=== PATIENT | male | born 1975 | race Two or more races ===

== ENCOUNTER → 2016-12-19 | Outpatient (CLI) | payer SELFPAY ==
[2016-12-19 10:46] LABS: CHLORIDE,CL 104 mmol/L (98-110); SODIUM,NA 139 mmol/L (136-146)
== END ==
LOC: MW.CHIM 10:12
PROVIDERS: ATTEND Internal Medicine
DX: I10 Essential (primary) hypertension (principal); R53.83 Other fatigue
CPT/HCPCS: 36415; 80048; 83036

== ENCOUNTER 2019-07-02 17:11 | Emergency (ER) | payer SELFPAY ==
--- NOTE | 2019-07-02 17:17 | EDM.PDOC ---
ED HPI GENERAL MEDICAL PROBLEM - General Chief Complaint: General Stated Complaint: MED REFILL Time Seen by Provider: 07/02/19 17:11 Source of Information: Reports: Patient History Limitations: Reports: No Limitations - History of Present Illness INITIAL COMMENTS - FREE TEXT/NARRATIVE: HISTORY AND PHYSICAL: History of present illness: Review of systems: As per history of present illness and below otherwise all systems reviewed and negative. Past medical history: As per history of present illness and as reviewed below otherwise noncontributory. Surgical history: As per history of present illness and as reviewed below otherwise noncontributory. Social history: See social history for further information Family history: As per history of present illness and as reviewed below otherwise noncontributory. Physical exam: General: HEENT: Atraumatic, normocephalic, pupils equal and reactive bilaterally, negative for conjunctival pallor or scleral icterus, mucous membranes moist, TMs normal bilaterally, throat clear, neck supple, nontender, trachea midline. No drooling or trismus noted. No meningeal signs. No hot potato voice noted. Lungs: Clear to auscultation, breath sounds equal bilaterally, chest nontender. Heart: S1S2, regular rate and rhythm without overt murmur Abdomen: Soft, nondistended, nontender. Skin: Intact, warm, dry. No lesions or rashes noted. Extremities: Atraumatic, moves all extremities per self without difficulty or deficits, negative for cords or calf pain. Neurovascular unremarkable. Neuro: Awake, alert, oriented. Cranial nerves II through XII unremarkable. Cerebellum unremarkable. Motor and sensory unremarkable throughout. Exam nonfocal. Notes: Supportive care measures were reviewed and discussed. Voices understanding and is agreeable to plan of care. Denies any further questions or concerns at this time. Diagnostics: Therapeutics: Prescription: Impression: Plan: Definitive disposition and diagnosis as appropriate pending reevaluation and review of above. - Related Data Allergies Allergy/AdvReac Type Severity Reaction Status Date / Time Unable to Assess Allergy Unverified 01/01/15 07:58 Departure - Discharge Information Referrals: PCP,Unknown [Primary Care Provider] -
== END 2019-07-02 17:23 ==
LOC: MW.ED 17:11
DX: Z53.21 Procedure and treatment not carried out due to patient leaving prior to being seen by health care provider (principal)

== ENCOUNTER 2020-06-25 08:02 | Day surgery (SDC) | payer OTHER ==
[~2020-06-25 08:02] MED LIST: Sodium Chloride 0.9% 1,000 ML IV SCH; Sodium Chloride 0.9% 10 ML SDV IV PRN; Sodium Chloride 0.9% 10 ML Syringe FLUSH PRN; Sodium Chloride 0.9% 2.5 ML Syringe FLUSH PRN
[2020-06-25] MEDS ORDERED: Propofol 200 MG/20 ML SDV ONE (08:49)
[2020-06-25] MEDS ORDERED: fentaNYL 100 MCG/2 ML SDV ONE (08:49)
[2020-06-25] MEDS ORDERED: Midazolam 1 MG/ML 2 ML SDV ONE (08:50)
[2020-06-25] MEDS ORDERED: Lactated Ringers 1,000 ML IV SCH (09:00)
--- NOTE | 2020-06-25 09:25 | PCM.PREANE ---
Preanesthetic Assessment - Anesthesia/Transfusion/Family Hx Anesthesia History: Prior Anesthesia Without Reaction Family History of Anesthesia Reaction: No Transfusion History: No Prior Transfusion(s) Intubation History: Unknown - Review of Systems General: No Symptoms Pulmonary: No Symptoms Cardiovascular: No Symptoms Gastrointestinal: Hematochezia, Other (family h/o colon cancer) Neurological: No Symptoms Other: Reports: None - Physical Assessment Vital Signs: Last Vital Signs Temp 36.2 C 06/25/20 08:57 Pulse 84 06/25/20 08:57 Resp 16 06/25/20 08:57 BP 119/80 06/25/20 08:57 Pulse Ox 100 06/25/20 08:57 Height: 5 ft 5 in Weight: 68.946 kg ASA Class: 2 Mental Status: Alert & Oriented x3 Airway Class: Mallampati = 1 Dentition: Reports: Normal Dentition Thyro-Mental Finger Breadths: 3 Mouth Opening Finger Breadths: 3 ROM/Head Extension: Full Lungs: Clear to Auscultation, Normal Respiratory Effort Cardiovascular: Regular Rate, Regular Rhythm - Allergies Allergies/Adverse Reactions: Allergies Allergy/AdvReac Type Severity Reaction Status Date / Time egg Allergy Itching Verified 06/25/20 09:05 - Blood Blood Available: No - Anesthesia Plan Pre-Op Medication Ordered: None - Acknowledgements Anesthesia Type Planned: MAC Pt an Appropriate Candidate for the Planned Anesthesia: Yes Alternatives and Risks of Anesthesia Discussed w Pt/Guardian: Yes Pt/Guardian Understands and Agrees with Anesthesia Plan: Yes PreAnesthesia Questionnaire Cardiovascular History: Reports: High Cholesterol, Hypertension Gastrointestinal History: Reports: GERD, Other (See Below) Other Gastrointestinal History: hx of rectal bleeding Endocrine/Metabolic History: Reports: Diabetes, Type II - Past Surgical History Head Surgeries/Procedures: Reports: None GI Surgical History: Reports: None Other Musculoskeletal Surgeries/Procedures:: closure of laceration left wrist - SUBSTANCE USE Smoking Status *Q: Never Smoker Recreational Drug Use History: No - HOME MEDS Home Medications: Home Meds Ergocalciferol (Vitamin D2) [Drisdol] 1.25 mg PO WEEKLY 06/23/20 [History] atorvaSTATin Calcium [Atorvastatin Calcium] 40 mg PO BEDTIME 06/23/20 [History] lisinopriL [Lisinopril] 20 mg PO BID 06/23/20 [History] metFORMIN HCl [Metformin ER Osmotic] 500 mg PO BID 06/23/20 [History] - CURRENT (IN HOUSE) MEDS Current Meds: Current Medications Sodium Chloride (Normal Saline) 1,000 mls @ 125 mls/hr IV ASDIRECTED TONO Lactated Ringer's (Ringers, Lactated) 1,000 mls @ 125 mls/hr IV ASDIRECTED TONO Last Admin: 06/25/20 09:10 Dose: 125 mls/hr Documented by: Sodium Chloride (Saline Flush) 10 ml FLUSH ASDIRECTED PRN PRN Reason: Keep Vein Open Sodium Chloride (Saline Flush) 2.5 ml FLUSH ASDIRECTED PRN PRN Reason: Keep Vein Open Sodium Chloride (Normal Saline) 10 ml IV ASDIRECTED PRN PRN Reason: IV Use Discontinued Medications Fentanyl (Sublimaze) Confirm Administered Dose 100 mcg .ROUTE .STK-MED ONE Stop: 06/25/20 08:50 Lidocaine HCl (Xylocaine-Mpf 1%) Confirm Administered Dose 5 ml .ROUTE .STK-MED ONE Stop: 06/25/20 08:51 Midazolam HCl (Versed 1 Mg/Ml) Confirm Administered Dose 2 mg .ROUTE .STK-MED ONE Stop: 06/25/20 08:51 Propofol (Diprivan 20 Ml) Confirm Administered Dose 600 mg .ROUTE .STK-MED ONE Stop: 06/25/20 08:50
--- NOTE | 2020-06-25 10:48 | PCM.OPNOTE ---
- General Post-Op/Procedure Note Date of Surgery/Procedure: 06/25/20 Operative Procedure(s): EGD with Biopsies and Colonoscopy Findings: Duodenitis, Gastritis, healing stomach ulcer, normal colon. Dictation #[id number] Pre Op Diagnosis: Blood in stool, Left abdominal pain Post-Op Diagnosis: Duodenitis, Gastritis, Stomach Ulcer, Normal Colon Anesthesia Technique: [facility] [place] Primary Surgeon: Eduardo Cunningham Pathology: EGD biopsies Condition: Good
--- NOTE | 2020-06-25 11:35 | PCM.POSTAN ---
POST ANESTHESIA ASSESSMENT - MENTAL STATUS Mental Status: Alert, Oriented - VITAL SIGNS Vital Signs: Last Vital Signs Temp 36.2 C 06/25/20 10:43 Pulse 90 06/25/20 11:29 Resp 14 06/25/20 11:29 BP 110/74 06/25/20 11:29 Pulse Ox 98 06/25/20 11:29 - RESPIRATORY Respiratory Status: Respiratory Rate WNL, Airway Patent, O2 Saturation Stable - CARDIOVASCULAR CV Status: Pulse Rate WNL, Blood Pressure Stable - GASTROINTESTINAL GI Status: No Symptoms - PAIN Pain Score: 0 - POST OP HYDRATION Hydration Status: Adequate & Stable - OBSERVATIONS Free Text/Narrative:: No anesthesia problems
--- NOTE | 2020-06-25 12:06 | PCM48HPAN ---
Post Anesthesia Note - EVALUATION WITHIN 48HRS OF ANESTHETIC Vital Signs in Normal Range: Yes Patient Participated in Evaluation: Yes Respiratory Function Stable: Yes Airway Patent: Yes Cardiovascular Function Stable: Yes Hydration Status Stable: Yes Pain Control Satisfactory: Yes Nausea and Vomiting Control Satisfactory: Yes Mental Status Recovered: Yes Vital Signs: Last Vital Signs Temp 36.2 C 06/25/20 10:43 Pulse 90 06/25/20 11:29 Resp 14 06/25/20 11:29 BP 110/74 06/25/20 11:29 Pulse Ox 98 06/25/20 11:29 - COMMENTS/OBSERVATIONS Free Text/Narrative:: No anesthesia problems
--- NOTE | 2020-06-25 16:35 | OR ---
SURGEON: DAYDAY FROST MD DATE OF PROCEDURE: 06/25/2020 PREOPERATIVE DIAGNOSES: 1. Blood in stool. 2. Left upper abdominal pain. POSTOPERATIVE DIAGNOSES: 1. Normal colonoscopy. 2. Duodenitis, gastritis, healing stomach ulcer. PROCEDURES PERFORMED: 1. Esophagogastroduodenoscopy with biopsies. 2. Colonoscopy. ANESTHESIA: MAC with Anesthesia. PRIMARY SURGEON: Dayday Frost MD SPECIMENS: EGD biopsies. EXTENT OF EGD: Up to the first part of the duodenum. EXTENT OF COLONOSCOPY: To the cecum. WITHDRAWAL TIME OF COLONOSCOPY: 10 minutes. BOWEL PREP: Very good. REASON FOR PROCEDURE: The patient is a pleasant 44-year-old gentleman who says for past couple of years he has intermittent blood in stool. Two months ago, he had a quite a bit of blood that was dripping out into the toilet. He has had no episodes since then. The patient has never had a colonoscopy before. The patient also states he gets some left abdominal pain. This happens especially after eating spicy food. Milk and dairy products seem to make it better. He says he has to eat a lot of Tums. In the clinic, I did tell him to start some omeprazole daily. The patient says this he has only been on for a week, but it seems to have greatly helped with his left abdominal pain. PROCEDURE IN DETAIL: Physical examination was performed. I went over the risks and benefits associated with the procedure with the patient in detail. The patient verbalized understanding of the same. The patient was then connected to appropriate monitoring devices and IV was started. EKG, pulse oximetry, blood pressure, capnography, and monitoring throughout the procedure. Continuous oxygen and sedation were provided by anesthesiologist. The patient was placed in left lateral decubitus position. Sedation was began. After adequate sedation was achieved, upper endoscope was advanced under direct visualization without any difficulty. The underlying mucosae of the esophagus, GE junction, stomach, pylorus, and first part of duodenum were inspected. On entering the stomach, the patient did have what looked to be a healing ulcer in the body of the stomach, more in the greater curvature of the stomach. The patient also had some gastritis throughout his stomach, but mainly in the body and more antrum. Scope was then advanced into the duodenum. At the very beginning of duodenum just past the pylorus, the patient did have what looked to be some inflammation, but no ulcers. Scope was then brought down further into the duodenum, appeared to have more normal mucosa. Scope was brought back up, biopsies were taken of the proximal duodenum where the inflammation was and sent for pathology. Biopsies were also taken of the pylorus to check for H. pylori. Scope was retroflexed in the stomach. Scope was brought back to this what appeared to be a healing ulcer. I did do several biopsies right around where the ulcer was and then one at the actual ulcer, it appeared to be healing. There was good hemostasis. Scope was brought up to GE junction. GE junction was about 37 cm from the incisor. GE junction had a good Z-line with a good transition from squamous to columnar tissue. Scope was brought back in the stomach. Again, good hemostasis of the biopsy sites. Stomach was then desufflated. Scope was brought up to the esophagus. The esophagus appeared normal. Scope was removed and this part of the procedure was terminated. Gloves and scopes were changed. Now, a digital rectal exam was performed. No rectal masses or polyps were felt. Now, a well-lubricated Olympus colonoscope was entered in rectum and advanced under direct visualization to the cecum. Cecum was identified by both visual and anatomic landmarks. A photograph was taken of the cecal cap and appendiceal orifice. Pictures were taken of the ileocecal valve. The scope was then slowly withdrawn color, texture, anatomy, and integrity of the mucosa from the cecal to the anal canal. The patient did have some light liquid stool which was suctioned and irrigated out with excellent look at the mucosa. No polyps or diverticulosis was seen. Scope was retroflexed in the rectum. Scope was then completely removed and the procedure was terminated. ENDOSCOPIC DIAGNOSES: 1. Duodenitis, gastritis, a stomach ulcer appeared to be healing. 2. Normal colonoscopy. RECOMMENDATIONS: Followup colonoscopy in 10 years, sooner if he develops signs and symptoms such as change in bowel habits or blood in stool. The patient is to follow up in clinic to go over his EGD biopsies. The patient should continue his omeprazole, seems to working as stomach ulcer is healing. The patient should have another followup EGD in 6 months to make sure ulcer completely heals. The patient was also recommended to hold or avoid NSAIDs. ALYSSA / RYLEE /[id number]
== END 2020-06-25 12:05 | disposition home or self-care (01) ==
LOC: MW.SDS 08:02
PROVIDERS: ATTEND Surgery
DX: K29.50 Unspecified chronic gastritis without bleeding (principal); K25.9 Gastric ulcer, unspecified as acute or chronic, without hemorrhage or perforation; K29.80 Duodenitis without bleeding; K92.1 Melena; E78.00 Pure hypercholesterolemia, unspecified; I10 Essential (primary) hypertension; K21.9 Gastro-esophageal reflux disease without esophagitis; E11.69 Type 2 diabetes mellitus with other specified complication; E78.5 Hyperlipidemia, unspecified; Z79.899 Other long term (current) drug therapy; Z91.012 Allergy to eggs; Z79.84 Long term (current) use of oral hypoglycemic drugs
CPT/HCPCS: 43239; 45378; J2001; J2250; J2704; J3010; J7120; 00813

== ENCOUNTER 2024-01-27 15:20 | Emergency (ER) | payer SELFPAY ==
[2024-01-27] MEDS: Sodium Chloride 0.9% 1,000 ML IV ONE ×2 (15:50→17:07)
[2024-01-27 15:54] LABS: BASE EXCESS VENOUS -1.6 (-2.0-3.0); PH,VENOUS 7.4 (7.31-7.41)
[2024-01-27 15:55] LABS: BASOPHILS ABSOLUTE AUTO 0.05 K/uL (0.00-0.20); BASOPHILS PERCENT AUTO 0.3 % (0.0-1.0); EOSINOPHILS ABSOLUTE AUTO 0.08 K/uL (0.00-0.45); EOSINOPHILS PERCENT AUTO 0.6 % (0.0-6.0); HEMATOCRIT 44.7 % (42.0-52.0); HEMOGLOBIN 16.2 g/dL (14.0-18.0); IMMATURE GRAN ABSOLUTE AUTO 0.06 K/uL (0.00-0.05); IMMATURE GRAN PERCENT AUTO 0.4 % (0.0-0.4); LYMPHOCYTES PERCENT AUTO 13.2 % (24.0-44.0); MEAN CORPUSCULAR HEMOGLOBIN 29.6 pg (28.0-32.0); MEAN CORPUSCULAR HGB CONC 36.2 g/dL (32.0-36.0); MEAN CORPUSCULAR VOLUME 81.7 fL (83.0-99.0); MEAN PLATELET VOLUME 9.8 fL (9.4-12.4); MONOCYTES ABSOLUTE AUTO 0.63 K/uL (0.00-0.80); MONOCYTES PERCENT AUTO 4.4 % (0.0-8.0); NEUTROPHILS ABSOLUTE AUTO 11.65 K/uL (1.80-7.70); NEUTROPHILS PERCENT AUTO 81.1 % (41.0-71.0); PLATELET COUNT,PLT 265 K/uL (150-400); RED BLOOD CELL COUNT 5.47 M/uL (4.52-5.90); WHITE BLOOD CELL COUNT,WBC 14.37 K/uL (3.9-11.3)
[2024-01-27 16:32] LABS: A/G RATIO 1.1 (0.9-1.6); BILIRUBIN TOTAL 0.6 mg/dL (0.2-1.0); CALCIUM 10.3 mg/dL (8.5-10.1); CARBON DIOXIDE,CO2 22.6 mmol/L (21.0-32.0); CREATININE 1.6 mg/dL (0.8-1.3); EST CRCL DRUG DOSING (CG) 48.58 mL/min; MAGNESIUM 1.3 mg/dL (1.8-2.4); POTASSIUM,K 3.8 mmol/L (3.5-5.1); PROTEIN TOTAL,TP 7.8 g/dL (6.4-8.2)
[2024-01-27] MEDS: Magnesium Sulfate/Water 2 GM in Premix Bag 1 BAG IV ONE (17:07)
[2024-01-27 18:33] LABS: APPEARANCE,URINE CLEAR; BILIRUBIN,URINE NEGATIVE (NEGATIVE); COLOR,URINE YELLOW; GLUCOSE,URINE >=1000 mg/dL (NEGATIVE); KETONES,URINE 15 mg/dL (NEGATIVE); LEUKOCYTE ESTERASE,URINE NEGATIVE (NEGATIVE); NITRITE,URINE NEGATIVE (NEGATIVE); OCCULT BLOOD,URINE TRACE-INTACT (NEGATIVE); PROTEIN,URINE 100 mg/dL (NEGATIVE); UROBILINOGEN,URINE 0.2 EU/dL (<2.0)
[2024-01-27 18:41] LABS: BACTERIA,URINE RARE (NEGATIVE); EPITHELIAL CELLS,URINE RARE (NONE-FEW); RBC,URINE 0-1 (0-2/HPF); WBC,URINE 0-1 (0-5/HPF)
[2024-01-27] MEDS: Lisinopril 10 MG Tab PO ONE (18:41)
[2024-01-27] MEDS: metFORMIN 500 MG Tab PO ONE (18:42)
[2024-01-27 18:43] LABS: AMPHETAMINES SCREEN, URINE NEGATIVE (CUTOFF=500); BARBITURATE SCREEN,URINE NEGATIVE (CUTOFF=200); BENZODIAZEPINES SCREEN,URINE NEGATIVE (CUTOFF=150); BUPRENORPHINE SCREEN,URINE NEGATIVE (CUTOFF=10); METHADONE SCREEN, URINE NEGATIVE (CUTOFF=200); METHAMPHETAMINES SCREEN, URINE NEGATIVE (CUTOFF=500); OXYCODONE SCREEN,URINE NEGATIVE (CUT0FF=100); PCP SCREEN,URINE NEGATIVE (CUTOFF=25); THC SCREEN,URINE 20 NG/ML NEGATIVE (CUTOFF=50)
[2024-01-27] MEDS: Iopamidol 755 MG/ML 500 ML Multipack Bottle IVPUSH ONE (20:30)
== END 2024-01-27 22:22 ==
LOC: MW.ED 15:20
DX: E11.65 Type 2 diabetes mellitus with hyperglycemia (principal); E83.42 Hypomagnesemia; E86.0 Dehydration; I10 Essential (primary) hypertension; E78.00 Pure hypercholesterolemia, unspecified; K21.9 Gastro-esophageal reflux disease without esophagitis; Z79.84 Long term (current) use of oral hypoglycemic drugs; Z79.899 Other long term (current) drug therapy; Z91.012 Allergy to eggs
CPT/HCPCS: 36415; 71045; 71275; 80053; 80305; 81001; 82009; 82803; 82947; 83735; 84443; 84484; 85025; 85379; 93005; 96361; 96365; 99284; A9270; J3475; J7030; Q9967; 93010

== ENCOUNTER 2024-02-28 15:05 | Emergency (ER) | payer SELFPAY ==
[2024-02-28] MEDS: cloNIDine 0.1 MG Tab PO ONE (15:46)
== END 2024-02-28 15:50 ==
LOC: MW.ED 15:05
DX: I10 Essential (primary) hypertension (principal); E11.9 Type 2 diabetes mellitus without complications; E78.00 Pure hypercholesterolemia, unspecified; Z91.012 Allergy to eggs; Z79.84 Long term (current) use of oral hypoglycemic drugs; Z79.899 Other long term (current) drug therapy
CPT/HCPCS: 82947; 99283; A9270

== ENCOUNTER 2025-01-11 01:29 | Emergency (ER) | payer SELFPAY ==
[2025-01-11 02:45] LABS: BASOPHILS ABSOLUTE AUTO 0.07 K/uL (0.00-0.20); BASOPHILS PERCENT AUTO 0.5 % (0.0-1.0); EOSINOPHILS PERCENT AUTO 0.8 % (0.0-6.0); HEMATOCRIT 48.3 % (42.0-52.0); HEMOGLOBIN 17.2 g/dL (14.0-18.0); IMMATURE GRAN ABSOLUTE AUTO 0.09 K/uL (0.00-0.05); IMMATURE GRAN PERCENT AUTO 0.7 % (0.0-0.4); LYMPHOCYTES ABSOLUTE AUTO 2.27 K/uL (1.00-4.80); LYMPHOCYTES PERCENT AUTO 17.1 % (24.0-44.0); MEAN CORPUSCULAR HEMOGLOBIN 29.9 pg (28.0-32.0); MEAN CORPUSCULAR HGB CONC 35.6 g/dL (32.0-36.0); MEAN CORPUSCULAR VOLUME 83.9 fL (83.0-99.0); MEAN PLATELET VOLUME 10.8 fL (9.4-12.4); MONOCYTES ABSOLUTE AUTO 0.71 K/uL (0.00-0.80); MONOCYTES PERCENT AUTO 5.4 % (0.0-8.0); NEUTROPHILS ABSOLUTE AUTO 10.03 K/uL (1.80-7.70); NEUTROPHILS PERCENT AUTO 75.5 % (41.0-71.0); PLATELET COUNT,PLT 294 K/uL (150-400); RED BLOOD CELL COUNT 5.76 M/uL (4.52-5.90); WHITE BLOOD CELL COUNT,WBC 13.27 K/uL (3.9-11.3)
[2025-01-11 03:14] LABS: ALBUMIN 4.3 g/dL (3.4-5.0); BILIRUBIN TOTAL 0.6 mg/dL (0.2-1.0); CALCIUM 9.9 mg/dL (8.5-10.1); CARBON DIOXIDE,CO2 24.3 mmol/L (21.0-32.0); CREATININE 1.7 mg/dL (0.8-1.3); EST CRCL DRUG DOSING (CG) 40.15 mL/min; POTASSIUM,K 4.3 mmol/L (3.5-5.1); PROTEIN TOTAL,TP 8.6 g/dL (6.4-8.2)
[2025-01-11] MEDS: Sodium Chloride 0.9% 1,000 ML IV ONE ×2 (03:25→04:09)
== END 2025-01-11 05:23 ==
LOC: MW.ED 01:29
DX: E11.65 Type 2 diabetes mellitus with hyperglycemia (principal); I10 Essential (primary) hypertension; E78.00 Pure hypercholesterolemia, unspecified; K21.9 Gastro-esophageal reflux disease without esophagitis; Z79.84 Long term (current) use of oral hypoglycemic drugs; Z79.899 Other long term (current) drug therapy; Z91.012 Allergy to eggs
CPT/HCPCS: 36415; 80053; 82947; 85025; 93005; 96360; 96361; 99284; J7030; 93010; 99285

== ENCOUNTER 2025-04-01 21:58 | Emergency (ER) | payer SELFPAY ==
[2025-04-01] MEDS: Lisinopril 10 MG Tab PO ONE (23:30)
[2025-04-01 23:53] LABS: AMPHETAMINES SCREEN, URINE NEGATIVE (CUTOFF=500); BARBITURATE SCREEN,URINE NEGATIVE (CUTOFF=200); BENZODIAZEPINES SCREEN,URINE NEGATIVE (CUTOFF=150); BUPRENORPHINE SCREEN,URINE NEGATIVE (CUTOFF=10); METHADONE SCREEN, URINE NEGATIVE (CUTOFF=200); METHAMPHETAMINES SCREEN, URINE NEGATIVE (CUTOFF=500); OXYCODONE SCREEN,URINE NEGATIVE (CUT0FF=100); PCP SCREEN,URINE NEGATIVE (CUTOFF=25); THC SCREEN,URINE 20 NG/ML NEGATIVE (CUTOFF=50)
[2025-04-02] MEDS: Doxycycline Monohydrate 100 MG Cap PO ONE (00:22)
[2025-04-02] MEDS: cloNIDine 0.1 MG Tab PO ONE (00:22)
== END 2025-04-02 00:29 ==
LOC: MW.ED 21:58
DX: I10 Essential (primary) hypertension (principal); E11.9 Type 2 diabetes mellitus without complications; L98.9 Disorder of the skin and subcutaneous tissue, unspecified; E78.00 Pure hypercholesterolemia, unspecified; K21.9 Gastro-esophageal reflux disease without esophagitis; Z91.148 Patient's other noncompliance with medication regimen for other reason; Z91.012 Allergy to eggs; Z79.84 Long term (current) use of oral hypoglycemic drugs; Z79.899 Other long term (current) drug therapy
CPT/HCPCS: 80305; 99283; A9270